=== PATIENT | female | born 1995 | race American Indian/Alaskan Native ===

== ENCOUNTER 2021-10-09 14:41 | Emergency (ER) | payer MEDICAID ==
[2021-10-09] MEDS ORDERED: HYOSCYAMINE SUBL 0.125 MG TAB SL ONE (16:21)
[2021-10-09] MEDS ORDERED: SODIUM CHLORIDE 0.9% 1000 ML 1,000 ML IV ONE (16:21)
[2021-10-09] MEDS ORDERED: ONDANSETRON 4 MG/2 ML INJ IV ONE (16:21)
--- NOTE | 2021-10-09 16:22 | Emergency Department Report ---
ED Abdominal Pain HPI - General Chief Complaint: Abdominal Pain Stated Complaint: ABD PAIN/CRAMPING Time Seen by Provider: 10/09/21 15:25 Source: patient Mode of arrival: Ambulatory Limitations: No Limitations - History of Present Illness Initial Comments: 26-year-old female presents to the ER today with complaints of nausea, vomiting, diffuse abdominal pain. She states that symptoms started 3 days ago. She states that emesis is mainly bilious. She reports "a little" diarrhea but she states that this has resolved. She denies any apparent ill contacts, recent travel or bad food intake or recent antibiotic use. She denies any UTI symptoms. Her menstrual cycle was October 01, but she states that only lasted a day. She did not take a home test. She is status post tubal ligation. She is also had 3 C-sections in the past. She reports no fever, chills, URI symptoms or any additional symptoms at this time. MD Complaint: abdominal pain, other (nausea and vomiting) -: days(s) (3) - Related Data Previous Rx's Medication Instructions Recorded Last Taken Type Hyoscyamine Subl [Levsin Sl 0.125 0.125 mg SL Q6HR PRN #30 tab 10/09/21 Unknown Rx TAB] Ondansetron [Zofran Odt] 4 mg PO Q8HR #15 tab.rapdis 10/09/21 Unknown Rx Allergies Allergy/AdvReac Type Severity Reaction Status Date / Time No Known Allergies Allergy Verified 10/09/21 15:12 ED Review of Systems ROS: Stated complaint: ABD PAIN/CRAMPING Other details as noted in HPI Comment: All other systems reviewed and negative Constitutional: weakness. denies: chills, fever Respiratory: denies: cough, shortness of breath, SOB with exertion, SOB at rest, wheezing Cardiovascular: denies: chest pain, palpitations Gastrointestinal: abdominal pain, nausea, vomiting, diarrhea Genitourinary: as per HPI. denies: dysuria, frequency, hematuria, discharge, abnormal menses, dyspareunia Musculoskeletal: denies: back pain, joint swelling, arthralgia Skin: denies: rash, lesions, change in color, change in hair/nails, pruritus Neurological: denies: headache, weakness, numbness, paresthesias, confusion, abnormal gait, vertigo Psychiatric: denies: anxiety, depression, auditory hallucinations, visual hallucinations, homicidal thoughts, suicidal thoughts Hematological/Lymphatic: denies: easy bleeding, easy bruising ED Past Medical Hx - Past Medical History Previous Medical History?: No - Surgical History Past Surgical History?: No - Medications Home Medications: Home Medications Medication Instructions Recorded Confirmed Last Taken Type Hyoscyamine Subl [Levsin Sl 0.125 0.125 mg SL Q6HR PRN #30 tab 10/09/21 Unknown Rx TAB] Ondansetron [Zofran Odt] 4 mg PO Q8HR #15 tab.rapdis 10/09/21 Unknown Rx ED Physical Exam - General Limitations: No Limitations General appearance: alert, in no apparent distress - Head Head exam: Present: atraumatic, normocephalic, normal inspection - Eye Eye exam: Present: normal appearance, PERRL, EOMI Pupils: Present: normal accommodation - ENT ENT exam: Present: mucous membranes moist - Respiratory Respiratory exam: Present: normal lung sounds bilaterally. Absent: respiratory distress - Cardiovascular Cardiovascular Exam: Present: regular rate, normal rhythm, normal heart sounds - GI/Abdominal GI/Abdominal exam: Present: soft, tenderness (Mild, diffuse). Absent: distended, guarding, rebound - Neurological Exam Neurological exam: Present: alert, oriented X3, CN II-XII intact, normal gait - Psychiatric Psychiatric exam: Present: normal affect, normal mood - Skin Skin exam: Present: intact ED Course Vital Signs 10/09/21 15:12 Temperature 98.2 F Pulse Rate 70 Respiratory 16 Rate Blood Pressure 134/60 [Left] O2 Sat by Pulse 95 Oximetry ED Medical Decision Making - Lab Data Result diagrams: 10/09/21 16:45 10/09/21 16:45 - Medical Decision Making 26-year-old female presents to the ER today with complaints of nausea, vomiting, diffuse abdominal pain. She states that symptoms started 3 days ago. She states that emesis is mainly bilious. She reports "a little" diarrhea but she states that this has resolved. She denies any apparent ill contacts, recent travel or bad food intake or recent antibiotic use. She denies any UTI symptoms. Her menstrual cycle was October 01, but she states that only lasted a day. She did not take a home test. She is status post tubal ligation. She is also had 3 C-sections in the past. She reports no fever, chills, URI symptoms or any additional symptoms at this time. 1853: All labs reviewed CBC and CMP unremarkable. Lipase normal. Urinalysis appears to be more contamination than a true UTI. hCG is negative. Patient appears to be feeling better after some IV fluids. She has not had any vomiting during stay. She has a nonsurgical abdominal exam. She is not toxic or ill- appearing. Discussed all lab results with patient. Suspect a viral illness at this time. Discussed treatment plan with patient. Recommend that she continue drinking lots of fluids, and doing a bland diet for the next couple days. Recommend close follow-up with her PCP but she understands to return to the ER if anything changes or worsens. Patient was stable at time of discharge. Critical care attestation.: If time is entered above; I have spent that time in minutes in the direct care of this critically ill patient, excluding procedure time. ED Disposition Clinical Impression: Viral gastroenteritis Disposition: 01 HOME / SELF CARE / HOMELESS Is pt being admited?: No Does the pt Need Aspirin: No Condition: Stable Instructions: Viral Gastroenteritis, Adult, [id number], Abdominal Pain (ED) Additional Instructions: take the zofran as prescribed to help with nausea and vomiting. Take the levsin and pepcid to help with stomach pain. Do bland diet and continue to drink lots of fluids. Follow up with PCP. REturn to ED if worse. Prescriptions: Hyoscyamine Subl [Levsin Sl 0.125 TAB] 0.125 mg SL Q6HR PRN #30 tab PRN Reason: abdominal cramps Ondansetron [Zofran Odt] 4 mg PO Q8HR #15 tab.zeb Referrals: TAMIKA QUINTERO MD [Staff Physician] - 3-5 Days Forms: Work/School Release Form(ED) Time of Disposition: 18:46
[2021-10-09 17:12] LABS: Basophils # (Auto) 0.1 K/mm3 (0.0-0.1); Basophils % (Auto) 0.8 % (0.0-1.8); Eosinophils # (Auto) 0.2 K/mm3 (0.0-0.4); Eosinophils % (Auto) 2.7 % (0.0-4.3); Hematocrit 40.8 % (30.3-42.9); Hemoglobin 13.4 gm/dl (10.1-14.3); Lymphocytes # (Auto) 3.3 K/mm3 (1.2-5.4); Lymphocytes % (Auto) 50.6 % (13.4-35.0); Mean Corpuscular HGB Conc 33 % (30-34); Mean Corpuscular Volume 92 fl (79-97); Monocytes # (Auto) 0.3 K/mm3 (0.0-0.8); Monocytes % (Auto) 5.3 % (0.0-7.3); Platelet Count 224 K/mm3 (140-440); Red Blood Count 4.45 M/mm3 (3.65-5.03); Red Cell Distribution Width 13.8 % (13.2-15.2)
[2021-10-09 17:45] LABS: Alanine Aminotransferase 12 units/L (7-56); Albumin 4.2 g/dL (3.9-5); BUN/Creatinine Ratio 10; Blood Urea Nitrogen 8 mg/dL (7-17); Calcium 9.2 mg/dL (8.4-10.2); Hemolysis Index 22
[2021-10-09 18:09] LABS: Calcium Oxalate Crystals,Urine FEW; Mucus,Urine FEW /HPF
[2021-10-09 18:44] LABS: Bilirubin,Urine Negative (Negative); Blood,Urine Negative (Negative); Color,Urine Amber (Yellow)
[2021-10-09 18:45] LABS: Urobilinogen,Urine < 2.0 mg/dL (<2.0)
[2021-10-09 19:18] VITALS: BP 143/99
== END 2021-10-09 19:14 | disposition home or self-care (01) ==
LOC: ED 14:41
DX: A08.4 Viral intestinal infection, unspecified (principal)
CPT/HCPCS: 36415; 80053; 81001; 83690; 84703; 85025; 87086; 96361; 96374; 99283; J2405; J7030; Q0162